=== PATIENT | male | born 1965 | race Hispanic/Latino ===

== ENCOUNTER 2017-07-20 17:39 | Emergency (ER) | payer SELFPAY ==
[2017-07-20 17:46] VITALS: TEMP 98; O2SAT 98
[2017-07-20] MEDS ORDERED: Sodium Chloride 0.9% 500 ML IV STA (18:06)
--- NOTE | 2017-07-20 18:17 | ED PDOC ---
HPI: Psych/Substance Abuse Time Seen by Provider: 07/20/17 17:59 Chief Complaint (Nursing): Psychiatric Evaluation Chief Complaint (Provider): EtOH History Per: Patient History/Exam Limitations: no limitations Additional Complaint(s): 52yo male, brought to ER by EMS for evaluation as patient was found publicly intoxicated. He states he was in [place] drinking with friends after work. Patient denies any trauma, injury, however per EMS, patient was noted to have [place]. He denies any suicidal ideation, homicidal ideation and offers no other medical complaints. Past Medical History Reviewed: Historical Data, Nursing Documentation, Vital Signs Vital Signs: Last Vital Signs Temp 98.0 F 07/20/17 17:44 Pulse 134 H 07/20/17 17:44 Resp 16 07/20/17 17:44 BP 169/92 H 07/20/17 17:44 Pulse Ox 98 07/20/17 17:44 - Medical History PMH: No Chronic Diseases - Surgical History Surgical History: No Surg Hx - Family History Family History: States: No Known Family Hx - Social History Alcohol: Occasional - Allergies Allergies/Adverse Reactions: Allergies Allergy/AdvReac Type Severity Reaction Status Date / Time No Known Allergies Allergy Verified 07/20/17 18:06 Review of Systems ROS Statement: Except As Marked, All Systems Reviewed And Found Negative Neurological: Positive for: Other (head injury per EMS) Psych: Negative for: Suicidal ideation Physical Exam - Reviewed Nursing Documentation Reviewed: Yes Vital Signs Reviewed: Yes - Physical Exam Appears: Positive for: No Acute Distress Head Exam: Positive for: ATRAUMATIC, NORMAL INSPECTION, NORMOCEPHALIC Skin: Positive for: Normal Color Eye Exam: Positive for: Normal appearance, EOMI, PERRL ENT: Positive for: Normal ENT Inspection Neck: Positive for: Normal, Supple Cardiovascular/Chest: Positive for: Regular Rate, Rhythm Respiratory: Positive for: Normal Breath Sounds. Negative for: Wheezing Gastrointestinal/Abdominal: Positive for: Normal Exam, Soft. Negative for: Tenderness Back: Positive for: Normal Inspection Extremity: Positive for: Normal ROM. Negative for: Pedal Edema, Deformity, Swelling Neurologic/Psych: Positive for: Alert, Oriented, Gait (unsteady), Other ( slurred speech) - Laboratory Results Result Diagrams: 07/20/17 18:40 07/20/17 18:40 - ECG O2 Sat by Pulse Oximetry: 98 (RA) Pulse Ox Interpretation: Normal Medical Decision Making Medical Decision Making: Impression: alcohol intoxication, head injury Plan: -- Labs -- IV Fluids -- CT Head w/o contrast Time: 1851 Upon re-evaluation, patient states he only "bumped" his head and denies any falls or other trauma. He denies any headache, neck pain, vision changes, vomiting and was able to tolerate food after the injury. Patient states he is able to recall the event completely. Per patient, his is on her way to pick him up from the ER. Time: 1899 Patient to be signed out to Dr. Segura pending clinical sobriety and family picker. Scribe Attestation: Documented by Kim Hawk acting as a scribe for Demetrius Angelo MD. Provider Attestation: All medical record entries made by the Scribe were at my direction and personally dictated by me. I have reviewed the chart and agree that the record accurately reflects my personal performance of the history, physical exam, medical decision making, and the department course for this patient. I have also personally directed, reviewed, and agree with the discharge instructions and disposition. Disposition - Clinical Impression Clinical Impression: Alcohol intoxication - Patient ED Disposition Is Patient to be Admitted: Transfer of Care - Disposition Disposition: Transfer of Care Disposition Time: 19:00 Condition: STABLE Patient Signed Over To: Vahe Segura Present On Arrival: None
[2017-07-20 18:43] LABS: BASO % 0.3 % (0.0-2.0); EOS % 0.2 % (0.0-4.0); HEMOGLOBIN 15.1 g/dL (12.0-18.0); LYMPH # 0.8 K/uL (1.0-4.3); LYMPH % 11.2 % (20.0-40.0); MEAN CELL VOLUME 95.9 fl (80.0-94.0); MEAN CORPUSCULAR HEMOGLOBIN 32.4 pg (27.0-31.0); MEAN CORPUSCULAR HGB CONC 33.8 g/dL (33.0-37.0); MEAN PLATELET VOLUME 8.3 fl (7.2-11.7); MONO # 1.1 K/uL (0.0-0.8); NEUT # 5.5 K/uL (1.8-7.0); NEUT % 73.3 % (50.0-75.0); NRBC % 0.1 % (0.0-0.0); RBC 4.65 Mil/uL (4.40-5.90); RED CELL DISTRIBUTION WIDTH 14.1 % (11.5-14.5); WHITE BLOOD COUNT 7.5 K/uL (4.8-10.8)
[2017-07-20 18:54] LABS: INR 0.9 (0.9-1.2); PARTIAL THROMBOPLASTIN TIME 27.8 Seconds (25.6-37.1); PROTHROMBIN TIME 10.4 Seconds (9.8-13.1)
--- NOTE | 2017-07-20 19:09 | ED PDOC ---
- Laboratory Results Result Diagrams: 07/20/17 18:40 07/20/17 18:40 - ECG O2 Sat by Pulse Oximetry: 98 (RA) Pulse Ox Interpretation: Normal Medical Decision Making Medical Decision Making: Receiving sign out: Patient signed out to me by Dr. Angelo [place] [address] head, labs, clinical sobriety. Time: 2049 CT Head FINDINGS: Brain: Unremarkable. No hemorrhage. No significant white matter disease. No edema. Ventricles: Unremarkable. No ventriculomegaly. Bones/joints: Unremarkable. No acute fracture. Soft tissues: Unremarkable. Sinuses: Unremarkable as visualized. No acute sinusitis. Mastoid air cells: Unremarkable as visualized. No mastoid effusion. IMPRESSION: Normal head/brain CT. Time: 2119 Patient's present at bedside and patient to be discharged home in her care. Diagnosis: Alcohol intoxication Scribe Attestation: Documented by Kim Hawk acting as a scribe for Vahe Segura MD. Provider Attestation: All medical record entries made by the Scribe were at my direction and personally dictated by me. I have reviewed the chart and agree that the record accurately reflects my personal performance of the history, physical exam, medical decision making, and the department course for this patient. I have also personally directed, reviewed, and agree with the discharge instructions and disposition. Disposition - Clinical Impression Clinical Impression: Alcohol intoxication - POA Present On Arrival: None - Disposition Disposition: Routine/Home Disposition Time: 21:24 Condition: STABLE Instructions: Alcohol Abuse and Alcoholism (DC) Forms: [employer] (Hebrew)
[2017-07-20 19:21] LABS: ALB/GLOB RATIO 1.2 (1.0-2.1); ALBUMIN 4.9 g/dL (3.5-5.0); ALT/SGPT 76 U/L (21-72); AST/SGOT 87 U/L (17-59); BLOOD UREA NITROGEN 10 mg/dl (9-20); GFR AFRICAN-AMERICAN > 60; GFR NON-AFRICAN AMERICAN > 60
[2017-07-20 21:44] VITALS: BP 151/97; PULSE 82; RESP 18
--- NOTE | 2017-07-21 07:09 | CT ---
PROCEDURE: CT HEAD WITHOUT CONTRAST. HISTORY: Headache. Pain. COMPARISON: None available. TECHNIQUE: Axial computed tomography images were obtained through the head/brain without intravenous contrast. Radiation dose: Total exam DLP = 859 mGy-cm. This CT exam was performed using one or more of the following dose reduction techniques: Automated exposure control, adjustment of the mA and/or kV according to patient size, and/or use of iterative reconstruction technique. FINDINGS: HEMORRHAGE: No intracranial hemorrhage. BRAIN: No mass effect or edema. No atrophy or chronic microvascular ischemic changes. VENTRICLES: Unremarkable. No hydrocephalus. CALVARIUM: Unremarkable. PARANASAL SINUSES: Unremarkable as visualized. No significant inflammatory changes. MASTOID AIR CELLS: Unremarkable as visualized. No inflammatory changes. OTHER FINDINGS: Streak artifact somewhat limits evaluation of the posterior fossa. IMPRESSION: No acute intracranial abnormality. If headache persists, consider further evaluation with MRI. These findings were preliminarily reported at 8:49 p.m. on 07/20/[address] Alexx Avina from [facility].
--- NOTE | 2017-07-21 08:11 | CARD ---
APPROVED REPORT EKG Measurement Heart [id number] VA 130P-23 [id number] <Conclusion> Sinus tachycardia Right bundle branch block Left posterior fascicular block Bifascicular block Cannot rule out Inferior infarct, age undetermined Abnormal ECG
== END 2017-07-20 21:40 | disposition home or self-care (01) ==
LOC: H.ER 17:39
DX: F10.129 Alcohol abuse with intoxication, unspecified (principal); S09.90XA Unspecified injury of head, initial encounter; W22.8XXA Striking against or struck by other objects, initial encounter; Y92.89 Other specified places as the place of occurrence of the external cause
CPT/HCPCS: 70450; 80053; 82948; 84484; 85025; 85610; 85730; 93005; 99283; G0480